=== PATIENT | female | born 1985 | race Caucasian/White ===

== ENCOUNTER 2021-07-21 14:15 | Observation (INO) | payer MEDICAID ==
[~2021-07-21] VITALS: Ht 157.5 cm; Wt 70.8 kg
[2021-07-21] MEDS ORDERED: TERBUTALINE SULFATE 1MG/ML VIAL SUBCUT NR (17:15)
[2021-07-21] MEDS ORDERED: PNV1TABL50 MT (17:43)
== END 2021-07-21 18:00 | disposition home or self-care (01) ==
LOC: 8EST 14:15
PROVIDERS: ADMIT Obstetrics & Gynecology; ATTEND Obstetrics & Gynecology
DX: O99.891 Other specified diseases and conditions complicating pregnancy (principal); M54.59 Other low back pain; O48.0 Post-term pregnancy; Z3A.40 40 weeks gestation of pregnancy
CPT/HCPCS: 59025; 76805; 76818; G0378

== ENCOUNTER 2021-07-23 06:20 | Inpatient (IN) | payer MEDICAID ==
[~2021-07-23] VITALS: Ht 167.6 cm; Wt 70.8 kg
[~2021-07-23 06:20] MED LIST: PNV1TABL50 MT
[2021-07-23] MEDS ORDERED: LIDOCAINE HCL 1% 20ML VIAL (Pyxis) INJ INFIL SCH (07:00)
[2021-07-23] MEDS ORDERED: CARBOPROST TROMETHAMINE 250 MCG/ML AMPUL IM PRN (07:00)
[2021-07-23] MEDS ORDERED: NALOXONE HCL 0.4 MG/ML 1ML VIAL IM PRN (07:00)
[2021-07-23] MEDS ORDERED: LACTATED RINGERS 1,000 ML IV SCH (07:00)
[2021-07-23] MEDS ORDERED: METHYLERGONOVINE MALEATE 0.2 MG/ML IM PRN (07:00)
[2021-07-23] MEDS ORDERED: DEXT 5%/LR + PITOCIN 20UNITS/L 1,000 ML IV SCH ×2 (07:00→08:30)
[2021-07-23] MEDS ORDERED: BUTORPHANOL TARTRATE 2 MG/ML VIAL IV PRN (07:00)
[2021-07-23 07:39] LABS: BASOPHILS % 0.4 % (0.0-2.0); EOSINOPHILS % 0.2 % (0.0-5.0); HEMATOCRIT. 35.3 % (36.0-48.0); HEMOGLOBIN. 11.4 g/dL (12.0-16.0); LYMPHOCYTES % 11.5 % (20.0-50.0); MEAN CORPUSCULAR HEMOGLOBIN 23.7 pg (28.0-32.0); MEAN CORPUSCULAR VOLUME 73.4 fL (81.0-99.0); MEAN PLATELET VOLUME 8.5 fl (7.4-10.4); NEUTROPHILS % 81.9 % (40.0-76.0); PLATELET 296 x1000/uL (130-400); RED BLOOD CELL COUNT 4.81 mill/uL (4.2-5.4); RED CELL DISTRIBUTION WIDTH 16.2 % (11.6-14.6)
[2021-07-23 07:49] LABS: INR 0.9; PARTIAL THROMBOPLASTIN TIME 25.6 sec (23.4-31.0); PROTHROMBIN TIME 9.6 sec (9.6-11.0)
[2021-07-23] MEDS ORDERED: IBUPROFEN 400MG TABLET PO PRN (08:30)
[2021-07-23] MEDS ORDERED: BENZOCAINE/LANOLIN/ALOE VERA SPRAY TOP PRN (08:30)
[2021-07-23] MEDS ORDERED: RHO(D) IMMUNE GLOBULIN 300 MCG/SYR IM PRN (08:30)
[2021-07-23 10:00] VITALS: BP 94/45
[2021-07-23 10:30] VITALS: BP 98/45
[2021-07-23 11:00] VITALS: BP 95/45
[2021-07-23 11:47] LABS: CLARITY URINE CLOUDY (CLEAR); COLOR URINE YELLOW (YELLOW); KETONES URINE NEGATIVE (NEGATIVE); LEUKOCYTE ESTERASE URINE 2+ (NEGATIVE); NITRITE URINE NEGATIVE (NEGATIVE); OCCULT BLOOD URINE 2+ (NEGATIVE); PH URINE 5.5 (4.5-8.0); PROTEIN URINE NEGATIVE (NEGATIVE); SPECIFIC GRAVITY URINE 1.015 (1.005-1.030)
[2021-07-23 12:30] LABS: *AMPHETAMINES SCREEN URINE NEGATIVE (NEGATIVE); *BARBITURATES SCREEN URINE NEGATIVE (NEGATIVE); *BENZODIAZEPINES SCREEN URINE NEGATIVE (NEGATIVE); *COCAINE SCREEN URINE NEGATIVE (NEGATIVE); METHADONE URINE SCREEN NEGATIVE (NEGATIVE); OPIATES URINE SCREEN NEGATIVE (NEGATIVE)
[2021-07-23 12:32] LABS: PHENCYCLIDINE URINE SCREEN NEGATIVE (NEGATIVE)
[2021-07-23 12:39] LABS: CANNABINOID URINE SCREEN NEGATIVE (NEGATIVE)
[2021-07-23 12:46] LABS: HEPATITIS B SURFACE ANTIGEN NEGATIVE
[2021-07-23] MEDS: IBUPROFEN 800MG TABLET PO PRN (15:48)
[2021-07-23 16:10] VITALS: BP 109/59
[2021-07-23 19:30] VITALS: BP 95/56
[2021-07-24 04:00] VITALS: BP 92/52
[2021-07-24] MEDS: PRENATAL VIT/FE FUMARATE/FA TABLET PO SCH (08:01)
[2021-07-24] MEDS: IBUPROFEN 800MG TABLET PO PRN ×2 (08:01→17:32)
[2021-07-24] MEDS: FERROUS SULFATE 325MG TABLET PO SCH ×3 (08:01→17:32)
[2021-07-24 08:30] VITALS: BP 92/50
[2021-07-24 13:19] LABS: BASOPHILS % 0.4 % (0.0-2.0); EOSINOPHILS % 0.5 % (0.0-5.0); HEMATOCRIT. 31.4 % (36.0-48.0); HEMOGLOBIN. 10.1 g/dL (12.0-16.0); LYMPHOCYTES % 19.4 % (20.0-50.0); MEAN CORPUSCULAR HEMOGLOBIN 23.9 pg (28.0-32.0); MEAN CORPUSCULAR VOLUME 74.4 fL (81.0-99.0); MEAN PLATELET VOLUME 7.9 fl (7.4-10.4); MONOCYTES % 7.3 % (2.0-8.0); NEUTROPHILS % 72.4 % (40.0-76.0); PLATELET 259 x1000/uL (130-400); RED BLOOD CELL COUNT 4.23 mill/uL (4.2-5.4); RED CELL DISTRIBUTION WIDTH 15.8 % (11.6-14.6)
[2021-07-24 15:46] VITALS: BP 96/57
[2021-07-24 19:30] VITALS: BP 97/54
[2021-07-25 04:00] VITALS: BP 94/52
[2021-07-25] MEDS: PRENATAL VIT/FE FUMARATE/FA TABLET PO SCH (09:01)
[2021-07-25] MEDS: FERROUS SULFATE 325MG TABLET PO SCH (09:01)
[2021-07-25] MEDS ORDERED: FERR-63 PO (09:25)
[2021-07-25] MEDS ORDERED: IBUP-2030 PO (09:25)
== END 2021-07-25 16:55 | disposition home or self-care (01) | DRG 560 ==
LOC: 8 EST LDRP 06:20 → OBSVTOIN 06:20 → 8EST 11:07
PROVIDERS: ADMIT Obstetrics & Gynecology; ATTEND Obstetrics & Gynecology
PROC: 10E0XZZ Delivery of Products of Conception, External Approach (ICD-10-PCS; principal; 2021-07-23)
PROC: 0KQM0ZZ Repair Perineum Muscle, Open Approach (ICD-10-PCS; 2021-07-23)
PROC: 10907ZC Drainage of Amniotic Fluid, Therapeutic from Products of Conception, Via Natural or Artificial Opening (ICD-10-PCS; 2021-07-23)
DX: O48.0 Post-term pregnancy (principal); Z37.0 Single live birth; O69.81X0 Labor and delivery complicated by cord around neck, without compression, not applicable or unspecified; O70.1 Second degree perineal laceration during delivery; O90.81 Anemia of the puerperium; Z20.822 Contact with and (suspected) exposure to COVID-19; Z3A.40 40 weeks gestation of pregnancy
CPT/HCPCS: 36415; 80305; 81003; 85025; 86592; 86703; 86762; 86850; 86900; 87340; 87426; 99281; J2590; J3490